=== PATIENT | male | born 1955 | race Caucasian/White ===

== ENCOUNTER 2022-10-13 11:11 | Outpatient (OUT) | payer MEDICARE, SELFPAY ==
--- NOTE | 2022-10-13 | XR_ITS ---
The [address] [address] Patient Name: MACIEL HUBER MRN: [id number] date: 1955 Sex: M Assigned Patient Location: [facility] Current Patient Location: [facility] Accession/Order Number: [id number] Exam Date: 10/13/2022 11:55 Report Date: 10/13/2022 23:45 At the request of: KASHMIR DUMONT Procedure: XR foot BRIAN min 3V EXAM: XR foot BRIAN min 3V HISTORY: BILATERAL FOOT PAIN COMPARISON: None. TECHNIQUE: 4 views of each foot FINDINGS: Right: Overall bony architecture is normal. There is narrowing at the first MP joint with early osteophytosis. Interphalangeal joints also are narrowed, with osteophytosis at the first interphalangeal joint. There also is narrowing at the first tarsometatarsal joint with early articular surface sclerosis. Plantar and early posterior calcaneal enthesophytes are noted. Left: Overall bony architecture is normal. There is narrowing at the first MP joint with associated osteophytosis. Interphalangeal joints also are narrowed. The first tarsometatarsal joint is narrowed with associated medial osteophytosis. An early posterior calcaneal enthesophyte is noted. Dystrophic calcification between the first and second metatarsal heads. XR/XR foot BRIAN min 3V IMPRESSION: Degenerative changes bilaterally. Electronically authenticated by: Hannah DIMAS Date: 10/13/2022 23:45
== END 2022-10-13 11:12 | disposition home or self-care (01) ==
LOC: RAD 11:12
PROVIDERS: Visit Provider Podiatrist Foot & Ankle Surgery
DX: M79.671 Pain in right foot (principal); M79.672 Pain in left foot
CPT/HCPCS: 73630

== ENCOUNTER 2022-10-20 09:05 | Outpatient (RCR) | payer MEDICARE, SELFPAY | END 2022-12-08 16:11 | disposition home or self-care (01) | LOC: PT 09:05 | PROVIDERS: PCP Internal Medicine; Visit Provider Podiatrist Foot & Ankle Surgery | DX: R26.81 Unsteadiness on feet (principal); M79.671 Pain in right foot; E11.42 Type 2 diabetes mellitus with diabetic polyneuropathy; M20.21 Hallux rigidus, right foot | CPT/HCPCS: 97110; 97112; 97162; 97530 ==